=== PATIENT | male | born 2000 | race Caucasian/White ===

== ENCOUNTER 2021-04-17 17:18 | Emergency (ER) | payer SELFPAY ==
[~2021-04-17] VITALS: Ht 172.7 cm; Wt 62.7 kg
[2021-04-17 18:02] VITALS: BP 138/56; Ht 172.7 cm; Wt 62.7 kg
== END 2021-04-18 03:13 | disposition left against medical advice (07) ==
LOC: D.ER 17:18
DX: M54.5 Low back pain (principal)